=== PATIENT | female | born 1965 | race Caucasian/White ===

== ENCOUNTER → 2024-01-31 | Outpatient (CLI) | payer OTHER ==
[~2024-01-31] MED LIST: ATOR20TA50 PO; CARV-217 PO; LISI10TA34 PO; OMEP20TA PO; PAMELOR PO
[2024-01-31 13:00] VITALS: BP 98/53; PULSE 81; RESP 16; O2SAT 98
[2024-01-31 13:19] VITALS: BP 101/55; PULSE 70; RESP 16; O2SAT 97
== END | disposition home or self-care (01) ==
LOC: Rad HDHVI 12:49
PROVIDERS: ATTEND Internal Medicine Cardiovascular Disease
DX: Z01.818 Encounter for other preprocedural examination (principal); R07.9 Chest pain, unspecified; I05.1 Rheumatic mitral insufficiency; I25.10 Atherosclerotic heart disease of native coronary artery without angina pectoris
CPT/HCPCS: 71046; 93005; G0463

== ENCOUNTER 2024-02-03 07:22 | Day surgery (SDC) | payer OTHER ==
[2024-01-31 15:18] LABS: Basophils # (auto) 0 10 ^3/uL (0-0.2); Basophils % (auto) 0.3 % (0.0-2.0); Eosinophils # (auto) 0.1 10 ^3/uL (0-0.8); Eosinophils % (auto) 2.6 % (0.0-7.0); Hematocrit 34.9 % (36.0-46.0); Hemoglobin 11.8 g/dL (12.2-16.2); Lymphocytes # (auto) 1.3 10 ^3/uL (0.4-5.4); Lymphocytes % (auto) 27.1 % (10.0-50.0); Mean Corpuscular Hemoglobin 33.2 pg (28.0-32.0); Mean Corpuscular Hgb Conc. 33.7 g/dL (32.0-36.0); Mean Corpuscular Volume 98.5 fL (80.0-100.0); Monocytes # (auto) 0.5 10 ^3/uL (0-1.3); Monocytes % (auto) 9.5 % (0.0-12.0); Neutrophils # (auto) 2.9 10 ^3/uL (1.6-8.6); Neutrophils % (auto) 60.5 % (37.0-80.0); Red Blood Cells 3.55 10^6/uL (4.0-5.20); Red Cell Distribution Width 13.8 % (11.8-14.3); White Blood Cell 4.8 10^3/uL (4.4-10.8)
[2024-01-31 15:52] LABS: Chloride 105 mmol/L (98-107); Potassium 4.6 mmol/L (3.5-5.1); Sodium 141 mmol/L (136-145)
[2024-01-31 15:53] LABS: Anion Gap 7 (5-15); Carbon Dioxide 29 mmol/L (20-30)
[2024-01-31 15:58] LABS: BUN/Creatinine Ratio 8.5 (10.0-20.0); Blood Urea Nitrogen 8 mg/dL (9-23); Glucose 53 mg/dL (74-106)
[2024-01-31 16:03] LABS: INR 0.97 (0.9-1.15); Partial Thromboplastin Time 29.9 SEC (24.5-34.5); Prothrombin Time 10.3 sec (9.3-11.8)
[2024-02-03] VITALS (8 sets, daily range): BP systolic 102–118; BP diastolic 50–72; PULSE 65–74; RESP 12–19; O2SAT 97–99
[~2024-02-03] VITALS: Ht 167.6 cm; Wt 74.4 kg
[2024-02-03] MEDS ORDERED: LIDOCAINE 2%HCL (LOCAL ANESTH.) INJ 20ML MDV ONE (13:21)
[2024-02-03] MEDS ORDERED: SODIUM CHL 0.9% 0 ML ONE (13:21)
[2024-02-03] MEDS ORDERED: ANGIOMAX 250 MG VIAL IV ONE (13:21)
[2024-02-03] MEDS ORDERED: IOHEXOL 350 MG/ML 100ML IJ ONE (13:21)
[2024-02-03] MEDS ORDERED: HEPARIN IN NS 1000Units/500mL 1,500 ML ONE (13:22)
[2024-02-03] MEDS ORDERED: MIDAZOLAM HCL 2MG/2ML 2ml VIAL (1mg/ml) ONE (13:22)
[2024-02-03] MEDS ORDERED: fentaNYL CITRATE 100 MCG/2 ML VL ONE (13:22)
== END 2024-02-03 16:55 | disposition home or self-care (01) ==
LOC: CATH 07:22
PROVIDERS: ATTEND Internal Medicine Cardiovascular Disease
DX: I25.10 Atherosclerotic heart disease of native coronary artery without angina pectoris (principal); I35.1 Nonrheumatic aortic (valve) insufficiency; I11.0 Hypertensive heart disease with heart failure; I50.9 Heart failure, unspecified; E66.09 Other obesity due to excess calories; Z68.26 Body mass index [BMI] 26.0-26.9, adult
CPT/HCPCS: 36415; 80048; 85025; 85610; 85730; 93460; 93567; C1760; C1894; J1644; J2250; J3010; J7030; Q9967; 99152; 99153